=== PATIENT | male | born 1990 | race Caucasian/White ===

== ENCOUNTER 2018-08-14 18:14 | Emergency (ER) | payer SELFPAY ==
[2018-08-14] MEDS ORDERED: Sodium Chloride 0.9% 1,000 ML IV ONE (18:22)
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
--- NOTE | 2018-08-14 19:43 | CT ---
INDICATION: Headaches. Syncopal episode TECHNIQUE: Non-contrast CT of the head is submitted. No comparisons. FINDINGS: The ventricles, sulci and gyri are of normal size, shape and contour. Midline structures are centrally located. No convincing evidence of intra- or extra-axial fluid collections. IMPRESSION: 1. No radiographic evidence of acute intracranial abnormalities. Dictated by Latrell Bal MD @ 08/14/2018 7:40:50 PM Please note that all CT scans at this facility use dose modulation, iterative reconstruction, and/or weight-based dosing when appropriate to reduce radiation dose to as low as reasonably achievable. Dictated by: Latrell Bal MD @ 08/14/2018 19:40:57 (Electronically Signed)
== END 2018-08-14 19:57 ==
LOC: MW.ED 18:14
DX: R55 Syncope and collapse (principal); Z88.1 Allergy status to other antibiotic agents
CPT/HCPCS: 36415; 70450; 80053; 85025; 93005; 96360; 99285; J7040; 99282